=== PATIENT | male | born 1950 | race Caucasian/White ===

== ENCOUNTER 2018-11-20 06:05 | Day surgery (SDC) | payer OTHER ==
[~2018-11-20] VITALS: Ht 182.9 cm; Wt 76.4 kg
[2018-11-20] MEDS ORDERED: LIDOCAINE 4% 50 ML SOLUTION TP ONE (06:06)
[2018-11-20] MEDS ORDERED: EPINEPHrine 1:1,000 [1 MG/ML] AMP IM ONE (06:06)
[2018-11-20] MEDS ORDERED: BENZOCAINE 20% 50 MCG/SPRAY 57 GM TP ONE (06:06)
[2018-11-20] MEDS ORDERED: LIDOCAINE 2% 5 ML JELLY TP ONE (06:06)
[2018-11-20] MEDS ORDERED: SODIUM CHLORIDE 0.9% 1,000 ML IV ONE ×2 (06:37→07:00)
[2018-11-20] MEDS ORDERED: FentaNYL CITRATE-PF 100 MCG/2 ML VIAL ONE (07:39)
[2018-11-20] MEDS ORDERED: MIDAZOLAM HCL 2 MG/2 ML VIAL ONE (07:39)
[2018-11-20] MEDS ORDERED: MethylPREDNISolone SOD SUCC 125 MG/2 ML VIAL IVP ONE (08:45)
[2018-11-20] MEDS ORDERED: MethylPREDNISolone SOD SUCC 125 MG/2 ML VIAL ONE (08:47)
[2018-11-20] MEDS ORDERED: OXYGEN THERAPY IH SCH (20:00)
== END 2018-11-20 10:10 | disposition home or self-care (01) ==
LOC: SURGERY 06:05
PROVIDERS: ATTEND Internal Medicine Critical Care Medicine
DX: J38.4 Edema of larynx (principal); B37.0 Candidal stomatitis; I10 Essential (primary) hypertension
CPT/HCPCS: 31623; 31624; 71045; 87015; 87070; 87101; 87186; 87206; 87220; J0171; J2250; J2930; J3010; J7030; 88108; 88312